=== PATIENT | female | born 1960 | race Caucasian/White ===

== ENCOUNTER 2022-07-29 10:03 | Emergency (ER) | payer OTHER, SELFPAY ==
[2022-07-29 10:10] VITALS: BP 135/75; PULSE 95; RESP 16; TEMP 36.2; O2SAT 96
--- NOTE | 2022-07-29 10:13 | ED.SKABFB ---
HPI - Skin/Abscess/Foreign Bdy General Chief complaint: Skin/Abscess/Foreign Body Stated complaint: Clogged pore on left side Time Seen by Provider: 07/29/22 10:13 History of Present Illness HPI narrative: Patient is a 61-year-old female who presents the urgent care with complaints of a clogged pore on the left breast. Patient states that its been there for approximately 1 year and showed on a mammogram at that time. Patient states it is now infected and is more inflamed and red with the pain. Patient denies of any fever, nausea or vomiting. Patient has used warm compress without much relief. States that she is on a chemotherapy for uterine cancer. No other acute complaints. No acute distress noted. Patient aware of the plan of care. Some parts of this dictation were generated by voice recognition software and may contain typographical and/or grammatical inaccuracies. Related Data Home Medications Medication Instructions Recorded Confirmed apixaban 5 mg tablet (Eliquis) 5 mg PO DAILY 07/29/22 07/29/22 pembrolizumab 25 mg/mL intravenous See Rx Instructions .Route .COMPLEX 07/29/22 07/29/22 solution Allergies Allergy/AdvReac Type Severity Reaction Status Date / Time codeine AdvReac Nausea and Verified 07/29/22 10:21 Vomiting Review of Systems Review of Systems: CONSTITUTIONAL: Denies fever, chills, or sweats. EYES: Denies visual changes, redness, or discharge. ENT: Denies rhinorrhea, congestion, sore throat, or otalgia. CARDIOVASCULAR: Denies chest pain, palpitations, or edema. RESPIRATORY: Denies cough or dyspnea. GASTROINTESTINAL: Denies abdominal pain, nausea, vomiting, or diarrhea. GENITOURINARY: Denies dysuria or hematuria. SKIN: Reports of an abscess to the left breast MUSCULOSKELETAL: Denies back pain, joint pain, or myalgia. NEUROLOGIC: Denies headache, numbness, or weakness. All other systems reviewed are negative, except as documented in HPI. PMFSH Comments At the time of my signature, I reviewed and agree with the nursing past medical, surgical, social, and family history. There is no relevant family history pertinent to the patient complaint. Exam Narrative: GENERAL: This is a well-nourished, well-developed patient, in no apparent distress. HEAD: normocephalic, atraumatic. EYES: PERRL. Sclera clear/white. Vision is grossly intact. EARS: External ears normal NOSE: External nose normal with no obvious nasal discharge, nares without redness, no rhinorrhea. THROAT: Mucous membranes moist NECK: Neck supple CARDIOVASCULAR: Regular rate and rhythm without murmurs, gallops, or rubs. RESPIRATORY: Clear to auscultation. Breath sounds equal bilaterally. No wheezes, rales, or rhonchi. SKIN: 4 x 4 centimeter erythemic firm abscess to the lateral aspect of the left breast/axilla region NEURO: awake, alert, and oriented to person, place and time. There were no obvious focal neurologic abnormalities. EXTREMITIES: No clubbing, cyanosis, or edema. Course Course Level of Care: Express Care Visit Vital Signs Vital signs: Vital Signs Temperature 97.1 F L 07/29/22 10:10 Pulse Rate 95 07/29/22 10:10 Respiratory Rate 16 07/29/22 10:10 Blood Pressure 135/75 07/29/22 10:10 Pulse Oximetry 96 07/29/22 10:10 Oxygen Delivery Room Air 07/29/22 10:10 Temperature 97.1 F L 07/29/22 10:26 Pulse Rate 95 07/29/22 10:26 Respiratory Rate 16 07/29/22 10:26 Blood Pressure 135/75 07/29/22 10:26 Pulse Oximetry 96 07/29/22 10:26 Oxygen Delivery Room Air 07/29/22 10:26 Reviewed Procedures Abscess I/D chest: Side (if applicable): left Local Anesthetic: none Technique: incised with #11 blade Amount of fluid expressed (mL): 5 Irrigation: No Packing used?: none Complications: pain Abcess I&D Additional Comments: 4 x 4 centimeter firm slightly fluctuant abscess to the left breast/left axilla region incised with an 11 blade, aniceto
[2022-07-29 10:26] VITALS: BP 135/75; PULSE 95; RESP 16; TEMP 36.2; O2SAT 96
== END 2022-07-29 10:55 | disposition home or self-care (01) ==
PROVIDERS: Emergency Provider Nurse Practitioner Family; PCP Physician Assistant
DX: L02.213 Cutaneous abscess of chest wall (principal); C55 Malignant neoplasm of uterus, part unspecified
CPT/HCPCS: 10060; 87070; 87205; 99213; G0463

== ENCOUNTER 2022-11-16 16:36 | Emergency (ER) | payer OTHER, SELFPAY ==
[2022-11-16] VITALS (14 sets, daily range): BP systolic 111–148; BP diastolic 77–91; PULSE 81–93; RESP 11–22; TEMP 36.3–36.6; O2SAT 94–99
--- NOTE | ~2022-11-16 | XR_ITS ---
EXAMINATION: XR chest 1V portable DATE: 11/16/2022 17:22 INDICATION: Mid chest pain TECHNIQUE: frontal view of the chest was obtained. COMPARISON: None FINDINGS: Right internal jugular central venous port catheter with distal tip at the caudal superior vena cava. No focal airspace opacities, pulmonary edema, pleural effusion or pneumothorax. The cardiomediastina l silhouette is normal. IMPRESSION: 1. No acute cardiopulmonary disease. Reviewed, dictated and finalized at location A. ER ELECTRICIAN
--- NOTE | 2022-11-16 16:42 | ECG_ITS ---
Measurements Intervals [place] Rate: 91 P: 71 VA: 178 QRS: -43 QRSD: 124 T: 37 QT: 353 QTc: 436 Interpretive Statements SINUS RHYTHM LEFT AXIS DEVIATION [QRS AXIS < -30] MODERATE INTRAVENTRICULAR CONDUCTION DELAY [110+ ms QRS DURATION] NO PREVIOUS ECG AVAILABLE FOR COMPARISON Electronically Signed On 11-16-2022 21:20:46 [facility] [employer] TECHNICIAN by Stephanie Brunson M.D.
--- NOTE | 2022-11-16 17:03 | ED.CHESTPAIN ---
HPI - Chest Pain General Chief Complaint: Chest Pain Stated Complaint: chest pain Time Seen by Provider: 11/16/22 17:02 Source: patient Mode of arrival: ambulatory History of Present Illness HPI narrative: 61-year-old female, smoker a history endometrial cancer with Mets to the left pelvis left lower extremity vascular occlusion on Eliquis, on Keytruda for cancer,COPD/emphysema, arthritis involving the knees and the hips presents to the ER with a 12 hour history of -- lowers substernal chest pain which lasts 8-10 seconds with spontaneous resolution. No relation to exercise. No relation to breathing. No radiation of the pain. -- Chronic shortness of breath. -- Chronic left lower extremity swelling with pain. MD complaint: chest pain Onset (ago): hour(s) ( Started 12 hours ago) Timing of current episode: still present Pain location: substernal Pain radiation: none Severity: severe Quality: aching Relieving factors: nothing Exacerbating factors: nothing Context: recent illness ( on Keytruda for metastatic endometrial cancer) Associated symptoms: dyspnea Treatment prior to arrival: none Risk Factors Coronary artery disease risk factors: smoking history and hypertension Thoracic aortic dissection risk factors: longstanding hypertension Pulmonary embolism risk factors: malignancy Related Data On Oral Contraceptives: No Home Medications Medication Instructions Recorded Confirmed apixaban 5 mg tablet (Eliquis) 5 mg PO DAILY 07/29/22 11/16/22 amlodipine 5 mg tablet 5 mg PO DAILY 11/16/22 11/16/22 Allergies Allergy/AdvReac Type Severity Reaction Status Date / Time codeine AdvReac Nausea and Verified 11/16/22 16:46 Vomiting Review of Systems Review of Systems: All systems reviewed & are unremarkable except as noted in HPI and below Constitutional: Constitutional: Reports as per HPI and Reports no additional constitutional complaints Eyes: Eyes: Reports as per HPI and Reports no additional eye complaints ENT: Reports system reviewed and no additional complaints, except as documented and Reports as per HPI Cardiovascular: Cardiovascular: Reports as per HPI, Reports no additional cardiovascular complaints and Reports chest pain Respiratory: Respiratory: Reports as per HPI, Reports no additional respiratory complaints, Reports pain with cough, Reports dyspnea and Reports dyspnea on exertion Gastrointestinal: Gastrointestinal: Reports as per HPI and Reports no additional gastrointestinal complaints Genitourinary: Genitourinary: Reports no additional female genitourinary complaints and Reports as per HPI Musculoskeletal: Musculoskeletal: Reports no additional musculoskeletal complaints and Reports as per HPI Integumentary/Breasts: Skin/Breast: Reports system reviewed and no additional complaints, except as docu and Reports as per HPI Neurologic: Reports system reviewed and no additional complaints, except as documented and Reports as per HPI Psychiatric: Psychiatric: Reports no additional psychiatric complaints and Reports as per HPI Endocrine: Endocrine: Reports no additional endocrine complaints and Reports as per HPI Hematologic/Lymphatic: Hematologic/Lymphatic: Reports no additional hematologic/lymphatic complaints and Reports as per HPI Allergic/Immunologic: Allergic/Immunologic: Reports no additional allergic/immunologic complaints and Reports as per HPI Exam Const: General: cooperative, healthy appearing, comfortable and no acute distress Nutritional Appearance: obese Orientation/consciousness: oriented to person, oriented to place and oriented to time HENMT: Head: normal to inspection, No palpable skull fracture present, normocephalic and atraumatic Ears: hearing grossly normal bilaterally and external ears normal Face/Nose/Sinus: Normal external nose present Face and sinus: normal facial exam and sinuses nontender Mouth: Yes Normal oral and palatal mucosa present and Yes lip normal Throat: posteri
[2022-11-16] MEDS: ONDANSETRON INJ 4 MG/2 ML VIAL IV PUSH (17:35)
[2022-11-16] MEDS: MORPHINE SULFATE (*CRX) 2 MG/ML INJ IV PUSH (17:36)
[2022-11-16 17:50] LABS: Basophils Absolute Auto 0.02 K/mm3 (0.00-0.10); Basophils Percent Auto 0.3 % (0.0-1.0); Eosinophils Absolute Auto 0.09 K/mm3 (0.02-0.50); Eosinophils Percent Auto 1.5 % (1.0-6.0); Hematocrit 38.5 % (35.0-49.0); Hemoglobin 12.1 g/dL (12.0-15.0); Immature Granulocyte Absolute 0.02 K/mm3 (0.00-0.00); Immature Granulocyte Percent A 0.3 % (0.0-0.0); Lymphocytes Absolute Auto 0.64 K/mm3 (1.10-4.50); Lymphocytes Percent Auto 10.9 % (18.0-42.0); Mean Corpuscular HGB Conc 31.4 g/dL (32.0-36.0); Mean Corpuscular Hemoglobin 30.3 pg (27.0-31.0); Mean Corpuscular Volume 96.5 fL (78.0-102.0); Mean Platelet Volume 10.2 fl (9.2-11.8); Monocytes Absolute Auto 0.47 K/mm3 (0.10-0.90); Neutrophils Absolute Auto 4.7 K/mm3 (1.7-7.2); Platelet Count Result 217 K/mm3 (150-420); Red Blood Count 3.99 M/mm3 (4.20-5.40); Red Cell Distribution Width 13.2 % (11.6-14.4); White Blood Count 5.9 K/mm3 (4.8-10.8)
[2022-11-16 17:57] LABS: D Dimer 0.34 mg/L (0.19-0.50); Partial Thromboplastin Time 23.5 SEC (23.90-30.70); Prothrombin Time 10.8 Seconds (9.50-12.10)
[2022-11-16 18:01] LABS: Lactic Acid Reflex 1.3 mmol/L (0.4-2.0)
[2022-11-16 18:06] LABS: Alanine Aminotransferase 16 U/L (14-59); Albumin Level 3.4 g/dL (3.4-5.0); Alkaline Phosphatase 93 U/L (46-116); Anion Gap 7 mmol/L (8-16); Aspartate Amino Transferase < 10 U/L (15-37); Bilirubin,Total 0.2 mg/dL (0.00-1.00); Blood Urea Nitrogen 15 mg/dL (7-18); Calcium 8.5 mg/dL (8.5-10.1); Carbon Dioxide 30 mmol/L (21-32); Chloride 104 mmol/L (98-108); Estimated CRCL calculation 77 ml/min; Estimated Glomerular Filt Rate > 60; Glucose 110 mg/dL (70-99); Lipase 28 U/L (16-77); NT Pro B Type Natriuretic Pept 108 pg/mL (0-125); Osmolality Calculated 293 mOsm/kg (285-295); Potassium 3.6 mmol/L (3.5-5.1); Sodium 141 mmol/L (136-145); Total Protein 6.9 g/dL (6.4-8.2); Troponin I 5.8 ng/L (0.00-60.4)
[2022-11-16 18:36] LABS: Influenza A QL RT-PCR Negative (Negative); Influenza B QL RT-PCR Negative (Negative); SARS-CoV-2 RNA PCR Negative (Negative)
== END 2022-11-16 19:11 | disposition home or self-care (01) ==
PROVIDERS: Emergency Provider Internal Medicine Critical Care Medicine; PCP Physician Assistant
DX: R07.89 Other chest pain (principal); C54.1 Malignant neoplasm of endometrium; C79.89 Secondary malignant neoplasm of other specified sites; J43.9 Emphysema, unspecified; I10 Essential (primary) hypertension; Z79.01 Long term (current) use of anticoagulants; Z20.822 Contact with and (suspected) exposure to COVID-19
CPT/HCPCS: 36415; 71045; 80053; 83605; 83690; 83880; 84484; 85025; 85380; 85610; 85730; 87502; 93005; 96374; 96375; 99284; J2270; J2405; U0003; U0005

== ENCOUNTER 2024-06-09 17:32 | Emergency (ER) | payer MEDICARE, SELFPAY ==
[2024-06-09] VITALS (56 sets, daily range): BP systolic 114–168; BP diastolic 53–105; PULSE 73–95; RESP 13–35; TEMP 36.2–36.7; O2SAT 61–99
--- NOTE | ~2024-06-09 | XR_ITS ---
EXAMINATION: XR chest 1V portable DATE: 06/09/2024 18:20 INDICATION: Shortness of breath. TECHNIQUE: A single frontal view of the chest was obtained. COMPARISON: Chest single view 11/16/2022 FINDINGS: There is no pneumonia, pleural effusion, or pneumothorax. The heart size is normal. There i s a right internal jugular port with tip at superior cavoatrial junction. IMPRESSION: 1. No acute cardiopulmonary disease. Reviewed, dictated and finalized at location E.
--- NOTE | 2024-06-09 17:35 | ED.SOB ---
HPI - SOB/Dyspnea General Chief Complaint: Shortness of Breath/Dyspnea Stated Complaint: shortness of breath Source: patient Mode of arrival: ambulatory Limitations: no limitations History of Present Illness HPI Narrative: 63-year-old female, smoker with a history COPD/, endometrial cancer diagnosed 2020 status post hysterectomy and chemo, recurrence with Mets in pelvis and occluding left lower leg artery on Keytruda for 2 years with recent PET which showed contained tumor. patient presented to her patient transport officer at [facility], where she was noted to have a 1 month history of -- hypoxic with oxygen saturation in the 50s/ 60s. The patient refused to be admitted at [facility]. She has ongoing shortness of breath requiring supplemental oxygen. The patient is saturating 92% 4 L of O2 -- cough productive of mucoid sputum no fever or chills. No chest pain. MD elicited complaint: shortness of breath and cough Pertinent past history: COPD Onset (ago): month(s) ( 1 month) Timing: constant Severity: moderate Exacerbating factors: exertion Relieving factors: oxygen Known history of: COPD Associated symptoms: cough, wheezing and sputum production Treatment prior to arrival: none Related Data Home oxygen amount: 4 liters Home Medications Medication Instructions Recorded Confirmed apixaban 5 mg tablet (Eliquis) 5 mg PO DAILY 07/29/22 11/16/22 amlodipine 5 mg tablet 5 mg PO DAILY 11/16/22 11/16/22 Allergies Allergy/AdvReac Type Severity Reaction Status Date / Time codeine AdvReac Nausea and Verified 11/16/22 16:46 Vomiting Review of Systems Review of Systems: All systems reviewed & are unremarkable except as noted in HPI and below Constitutional: Constitutional: Reports as per HPI and Reports no additional constitutional complaints Eyes: Eyes: Reports as per HPI and Reports no additional eye complaints ENT: Reports system reviewed and no additional complaints, except as documented and Reports as per HPI Cardiovascular: Cardiovascular: Reports as per HPI and Reports no additional cardiovascular complaints Respiratory: Respiratory: Reports as per HPI, Reports no additional respiratory complaints, Reports cough, Reports dyspnea and Reports wheezing Gastrointestinal: Gastrointestinal: Reports as per HPI and Reports no additional gastrointestinal complaints Genitourinary: Genitourinary: Reports no additional female genitourinary complaints and Reports as per HPI Musculoskeletal: Musculoskeletal: Reports no additional musculoskeletal complaints and Reports as per HPI Comments: left leg claudication. No rest pain. Integumentary/Breasts: Skin/Breast: Reports system reviewed and no additional complaints, except as docu and Reports breast pain Neurologic: Reports system reviewed and no additional complaints, except as documented and Reports as per HPI Psychiatric: Psychiatric: Reports no additional psychiatric complaints and Reports as per HPI Endocrine: Endocrine: Reports no additional endocrine complaints and Reports as per HPI Hematologic/Lymphatic: Hematologic/Lymphatic: Reports no additional hematologic/lymphatic complaints and Reports as per HPI Allergic/Immunologic: Allergic/Immunologic: Reports no additional allergic/immunologic complaints and Reports as per HPI PMFSH Past Medical History Medical History (Updated 06/09/24 @ 22:24 by Elsieo Churchill MD) COPD exacerbation Uterine cancer Surgical History Surgical History (Updated 06/09/24 @ 17:57 by Eliseo Churchill MD) Status post hysterectomy Exam Narrative: in respiratory distress with an oxygen saturation of 90% on 5 L of O2. Afebrile. Respiratory rate of 24. Const: Nutritional Appearance: well nourished Orientation/consciousness: patient oriented x3 Limitations: no limitations HENMT: Head: normal to inspection Ears: external ears normal Face/Nose/Sinus: Normal external nose present Face and sinus: normal facial exam Mouth: Y
--- NOTE | 2024-06-09 17:44 | ECG_ITS ---
Test Date: 2024-06-09 17:50:52 Measurements Intervals [place] Rate: 87 P: 62 NH: 171 QRS: -73 QRSD: 86 T: -7 QT: 335 QTc: 403 Interpretive Statements SINUS RHYTHM LEFT AXIS DEVIATION LOW QRS VOLTAGE IN PRECORDIAL LEADS CHRONIC PULMONARY DISEASE PATTERN CONSIDER INFERIOR INFARCT, AGE INDETERMINATE ABNORMAL ECG No previous ECG available for comparison Electronically Signed On 06-10-2024 06:11:55 CDT by Bill Amaya D.O.
[2024-06-09] MEDS: methylPREDNISolone SOD SUCC 125 MG VIAL IV PUSH (18:12)
[2024-06-09] MEDS: IPRATROPIUM 0.5 MG/ALBUTEROL SULFATE 2.5 MG AMPUL.NEB 3 ML INHALATION (18:12)
[2024-06-09 18:16] LABS: Base Excess ABG 9.4 mmol/L (0-2); HCO3 ABG 37.8 mmol/L (23-29); Oxygen Content ABG 15.1 %vol (16.0-22.0); Oxygen Saturation ABG 91.3 % (95-97); Oxyhemoglobin 87.8 % (94-100); PO2 ABG 66.2 mmHg (80-90); Total Hemoglobin 12.2 g/dL (12.0-18.0); pH ABG 7.34 (7.35-7.45)
[2024-06-09 18:19] LABS: Modified Allen's Test Pass; PCO2 ABG 72.1 mmHg (35-45); Site Drawn LEFT RADIAL
[2024-06-09 18:20] LABS: Basophils Absolute Auto 0.02 K/mm3 (0.00-0.10); Basophils Percent Auto 0.3 % (0.0-1.0); Device NASAL CANNULA; Eosinophils Absolute Auto 0.19 K/mm3 (0.02-0.50); Eosinophils Percent Auto 2.7 % (1.0-6.0); Hematocrit 38.6 % (35.0-49.0); Hemoglobin 10.8 g/dL (12.0-15.0); Immature Granulocyte Absolute 0.04 K/mm3 (0.00-0.00); Immature Granulocyte Percent A 0.6 % (0.0-0.0); Lymphocytes Percent Auto 12.8 % (18.0-42.0); Mean Corpuscular Hemoglobin 25.5 pg (27.0-31.0); Mean Corpuscular Volume 91.3 fL (78.0-102.0); Mean Platelet Volume 9.9 fl (9.2-11.8); Monocytes Absolute Auto 0.69 K/mm3 (0.10-0.90); Monocytes Percent Auto 9.8 % (2.0-11.0); Neutrophils Absolute Auto 5.21 K/mm3 (1.70-7.20); Neutrophils Percent Auto 73.8 % (50.0-70.0); Nucleated Red Blood Cells Absolute Auto 0.03 K/mm3 (0.00-0.00); Nucleated Red Blood Cells Perc 0.4 % (0-0.0); Platelet Count Result 203 K/mm3 (150-420); Red Blood Count 4.23 M/mm3 (4.20-5.40); Red Cell Distribution Width 15.9 % (11.6-14.4); White Blood Count 7.1 K/mm3 (4.8-10.8)
[2024-06-09 18:32] LABS: INR 1.1; Prothrombin Time 11.5 Seconds (9.50-12.1)
[2024-06-09 18:41] LABS: Alanine Aminotransferase 9 U/L (14-59); Albumin Level 2.9 g/dL (3.4-5.0); Alkaline Phosphatase 94 U/L (46-116); Anion Gap 3 mmol/L (4-12); Aspartate Amino Transferase 11 U/L (15-37); Bilirubin,Total 0.3 mg/dL (0.00-1.00); Blood Urea Nitrogen 10 mg/dL (7-18); Calcium 7.9 mg/dL (8.5-10.1); Carbon Dioxide 37 mmol/L (21-32); Chloride 101 mmol/L (98-108); Estimated CRCL calculation 80 ml/min; Estimated Glomerular Filt Rate > 60; Glucose 99 mg/dL (70-99); Lactic Acid Reflex 0.8 mmol/L (0.4-2.0); NT Pro B Type Natriuretic Pept 2833 pg/mL (0-125); Osmolality Calculated 291 mOsm/kg (285-295); Potassium 4.4 mmol/L (3.5-5.1); Sodium 141 mmol/L (136-145); Total Protein 6.4 g/dL (6.4-8.2); Troponin I 14.7 ng/L (0.00-60.4)
[2024-06-09 18:48] LABS: Strep Group A RT-PCR NOT DETECTED (Negative)
[2024-06-09 18:58] LABS: SARS-CoV-2 RNA PCR Negative (Negative)
[2024-06-09 19:00] LABS: Influenza A QL RT-PCR Negative (Negative); Influenza B QL RT-PCR Negative (Negative); RSV RNA, RT-PCR Negative (Negative)
[2024-06-09 19:03] LABS: Appearance Urine Clear (Clear); Bilirubin Urine Negative (Negative); Blood Urine Negative (Negative); Color Urine Yellow (Yellow); Glucose Urine UA Negative (Negative); Ketones Urine Negative (Negative); Leukocyte Esterase Ur Negative LEU/UL (Negative); Nitrate Urine Negative (Negative); Protein Urine Negative (Negative)
--- NOTE | 2024-06-09 19:10 | PC.NURSE ---
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
[2024-06-09 19:16] LABS: Add Urine Microscopic? NO
--- NOTE | 2024-06-09 19:29 | PC.NURSE ---
RT placed patient on bipap machine per ERP request. RN monitoring. SpO2 improved.
--- NOTE | 2024-06-09 19:55 | PC.NURSE ---
Dr. Churchill at patient bedside for update. awaiting return call from [facility] for transfer.
[2024-06-09] MEDS: AZITHROMYCIN 500 MG/NS 250 ML 500 MG/250 ML BAG 250 MG IVPB (20:48)
--- NOTE | 2024-06-09 20:51 | PC.NURSE ---
IV meds infusing per order, see MAR. patient resting on bipap machine with daughter in law at bedside. patient gave okay for RN to phone secondary hospital facility, awaiting call back from both hospital facilities intensivists as patient must go to ICU with new onset bipap. call light within reach, RN monitoring.
[2024-06-09 20:55] LABS: Base Excess ABG 7.7 mmol/L (0-2); HCO3 ABG 35.4 mmol/L (23-29); Modified Allen's Test Pass; Oxygen Content ABG 15.1 %vol (16.0-22.0); Oxygen Saturation ABG 91.4 % (95-97); Oxyhemoglobin 88.4 % (94-100); PCO2 ABG 65.7 mmHg (35-45); PO2 ABG 63.7 mmHg (80-90); Site Drawn RIGHT RADIAL; Total Hemoglobin 12.1 g/dL (12.0-18.0); pH ABG 7.35 (7.35-7.45)
[2024-06-09 20:56] LABS: Device BIPAP
[2024-06-09 20:59] LABS: Expiratory Pressure 6 cmH2O; Fractional Inspired Oxygen 30 %; Inspiratory Pressure 12 cmH2O
--- NOTE | 2024-06-09 21:04 | PC.NURSE ---
repeat ABG results viewed by ERP, adjustments made per RT staff and ERP. patient resting on stretcher, RN awaiting call from an consultant intern.
[2024-06-09] MEDS: FUROSEMIDE INJ 20 MG/2 ML VIAL IV PUSH (21:55)
--- NOTE | 2024-06-09 22:12 | PC.NURSE ---
RN at bedside, medicated per order, see MAR. daughter in law Theresa updated as well prior to leaving for home. RN will phone with updates. Per [facility] retail representative still working code, patient aware she will be awaiting bed for [place] but was accepted. patient up to bedside commode, updated on plan of care including continuation of bipap. patient adjusted on stretcher for comfort. VSS at this time. RN monitoring and call light within reach.
[2024-06-10] VITALS (9 sets, daily range): BP systolic 102–158; BP diastolic 57–90; PULSE 84–98; RESP 12–28; TEMP 36; O2SAT 91–98
== END 2024-06-10 01:20 | disposition short-term general hospital (02) ==
PROVIDERS: Emergency Provider Internal Medicine Critical Care Medicine; PCP Physician Assistant
DX: J44.1 Chronic obstructive pulmonary disease with (acute) exacerbation (principal); J96.02 Acute respiratory failure with hypercapnia; Z20.822 Contact with and (suspected) exposure to COVID-19; Z85.42 Personal history of malignant neoplasm of other parts of uterus
CPT/HCPCS: 36415; 36600; 71045; 80053; 81003; 82805; 83605; 83735; 83880; 84484; 85025; 85610; 87637; 87651; 93005; 96365; 96367; 96375; 99291; J0456; J0696; J1940; J2919

== ENCOUNTER 2024-10-12 11:00 | Outpatient (RCR) | payer MEDICARE, SELFPAY | END 2024-10-12 13:26 | disposition home or self-care (01) | PROVIDERS: PCP Physician Assistant | DX: J44.9 Chronic obstructive pulmonary disease, unspecified (principal) | CPT/HCPCS: 94625 ==